=== PATIENT | male | born 1990 | race Caucasian/White ===

== ENCOUNTER 2020-12-09 21:15 | Emergency (ER) | payer SELFPAY ==
[2020-12-09 21:29] VITALS: BP 164/100; PULSE 92; RESP 18; TEMP 37.1; O2SAT 98; BMI 35.2
--- NOTE | 2020-12-09 21:32 | W.ED.SKABFB ---
HPI - Skin/Abscess/Foreign Bdy General: Chief complaint: Extremity Injury, Lower Stated complaint: Spider Bite Time Seen by Provider: 12/09/20 21:32 History of Present Illness: HPI narrative: 29-year-old male patient comes in today with a area of redness and tenderness to the left knee. Patient reports noticing it about 3 days ago he has continued to get more red and larger. Patient works in [email or web address]. Patient does not know what it happened to cause of wound he thought he might have been bit by a spider. Review of Systems General: Reports: 10 or more systems reviewed and unremarkable except in HPI and below Skin/Breast: Reports: other (Redness and tenderness to the left knee.) Physical Exam Const: COMMON NORMALS: no acute distress and patient oriented x3 GENERAL APPEARANCE: cooperative HENMT: COMMON NORMALS: normocephalic and Normal external nose present HEAD & SCALP: normal to inspection and normocephalic NOSE: Normal external nose present Eye: GENERAL EYE: appearance normal, both eyes and all related structures Neck/C-Spine: COMMON NORMALS: full ROM Chest: COMMONS NORMALS: normal inspection of the chest Resp: COMMON NORMALS: normal respiratory effort EFFORT & INSPECTION: Yes able to speak in complete sentences Cardio: COMMON NORMALS: regular rate and regular rhythm RATE: regular rate RHYTHM: regular rhythm GI: COMMON NORMALS: non-tender Extremity: COMMON NORMALS: normal to inspection Neuro: COMMON NORMALS: patient oriented x3 and moves all extremities Psych: COMMON NORMALS: mental status grossly normal and cooperative Skin: NARRATIVE SKIN EXAM: 4 cm area of redness with a punctate lesion draining serous fluid to the medial distal thigh or proximal knee area of the left leg. Patient has good range of motion. No fluctuance or sign of fluid collection is noted. Redness is indurated. Course Vital Signs: Vital signs: Vital Signs Temperature 98.7 F 12/09/20 21:29 Pulse Rate 92 12/09/20 21:29 Respiratory Rate 18 12/09/20 21:29 Blood Pressure 164/100 12/09/20 21:29 Pulse Oximetry 98 12/09/20 21:29 MDM - Skin/Abscess/Foreign Bdy MDM Narrative: Medical decision making narrative: Patient comes in today for complaints of redness and tenderness to the proximal left knee. There is a 4 cm area of redness of punctate clear drainage wound. Palpation of the wound notes no fluctuance or fluid collection. No sign of fluid collections or joint tenderness is noted with movement. Differential diagnosis includes cellulitis, infected wound, abscess. No sign of abscess is noted at this time. Will treat with antibiotic and warm compresses. Patient was recommended to monitor and follow-up with primary care in 3 days or return to the ER for worsening symptoms. Patient reported understanding. Discharge Plan Discharge Patient Disposition: Home Clinical Impression: Infected wound Condition: Stable Prescriptions: New Bactrim DS 800-160 mg tablet 1 tab PO BID 7 Days Qty: 14 RF: 0 mupirocin 2 % ointment 1 applic topical BID Qty: 22 RF: 0 Discharge Orders: Discharge ED (Routine); Ordered 12/09/20 Ordered By: Sagar Gomez Discharge Diet: Usual diet Discharge Activity: Increase activity as tolerated Patient Instructions: Wound Infection (ED), Opioid Safety Activity Restrictions/Additional Instructions: Warm moist packs to the area of redness. Take antibiotic twice a day as directed. Use antibiotic ointment to the wound twice a day until healed. Keep wound clean and dry as much as possible. Monitor site for increasing swelling and redness. At this time there is no indication of need for drainage but this may develop over time. Return to the ER or follow-up with primary care if you feel the wound needs to be drained. Do not stick a needle or try to drain the wound by yourself. Do not press and prod on the wound. You can do warm water soaks and hot compresses to the wound. Drink plenty of water with medication. Use Tylenol or ibuprofen for pain. Follow-up with primary care as needed. Coding Level of Care Code ED Waste Reduction Coordinator for Maia Rodriguez
[2020-12-09 21:35] VITALS: BP 149/88; PULSE 81; RESP 18; TEMP 36.9; O2SAT 96
[2020-12-09 22:26] VITALS: PULSE 86; RESP 18; O2SAT 97
== END 2020-12-09 22:27 | disposition home or self-care (01) ==
PROVIDERS: Emergency Provider Nurse Practitioner Family
DX: S80.912A Unspecified superficial injury of left knee, initial encounter (principal); L08.9 Local infection of the skin and subcutaneous tissue, unspecified; X58.XXXA Exposure to other specified factors, initial encounter
CPT/HCPCS: 99282

== ENCOUNTER → 2020-12-12 15:58 | Outpatient (BNVA) | payer SELFPAY | PROVIDERS: PCP Nurse Practitioner Family; Visit Provider Nurse Practitioner Family | DX: L02.416 Cutaneous abscess of left lower limb (principal) | CPT/HCPCS: 73562; 87070; 87077; 87184 ==

== ENCOUNTER 2021-11-28 04:48 | Emergency (ER) | payer SELFPAY ==
[2021-11-28 04:51] VITALS: BP 116/75; PULSE 113; RESP 18; TEMP 37.8; O2SAT 95; BMI 34.1
--- NOTE | 2021-11-28 05:11 | XRR_ITS ---
PROCEDURE INFORMATION: Exam: XR Chest Exam date and time: 11/28/2021 5:19 AM Age: 30 years old Clinical indication: Fever and shortness of breath; Patient HX: Fever with SOB; Additional info: SOB, fever TECHNIQUE: Imaging protocol: Radiologic exam of the chest. Views: 1 view. COMPARISON: No relevant prior studies available. FINDINGS: Lungs: There are mildly decreased lung volumes with mild accentuation of the pulmonary vascularity. There are no confluent interstitial or airspace opacities. Pleural spaces: There are no pleural effusions or pneumothorax. Heart/Mediastinum: The heart size is normal. The mediastinal contour is normal. The trachea is in the midline. Bones/joints: No acute abnormalities. XR/XR chest 1V portable [id number] IMPRESSION: Mildly decreased lung volumes with mild accentuation of the pulmonary vascularity. No confluent infiltrates in the lungs.
[2021-11-28] MEDS: ondansetron 4 MG Tablet PO (05:20)
[2021-11-28] MEDS: acetaminophen 325 mg Tablet 650 MG PO (05:20)
[2021-11-28 05:35] LABS: Basophils % 0.6 %; Eosinophils % 0.4 %; Hemoglobin 15.5 g/dL (11.7-16.6); Lymphocytes # 0.7 10^3/uL (0.8-4.8); Lymphocytes % 14.8 %; Mean Corpuscular HGB Conc 35.2 g/dL (30.0-36.0); Mean Corpuscular Hemoglobin 30.8 pg (28.0-34.0); Mean Corpuscular Volume 87.3 fl (80-94); Mean Platelet Volume 9.6 fL (7.4-10.4); Monocytes # 0.4 10^3/uL (0.2-0.9); Monocytes % 7.6 %; Neutrophils # 3.59 10^3/uL (1.8-7.7); Nucleated Red Blood Cells % 0 %; Platelet Count 101 10^3/cmm (130-400); Red Blood Count 5.04 10^6/uL (4.1-5.3); Red Cell Distribution Width 11.9 % (12.1-15.1); White Blood Count 4.7 10^3/uL (4.0-10.0)
[2021-11-28 05:38] VITALS: O2SAT 95
[2021-11-28 05:52] LABS: SARS Covid-2 Antigen Negative (Negative)
[2021-11-28 05:58] LABS: Alanine Aminotransferase 60 U/L (0-41); Albumin Level 4.2 g/dL (3.5-5.2); Alkaline Phosphatase 63 U/L (40-130); Aspartate Amino Transferase 50 U/L (0-40); Blood Urea Nitrogen 15 mg/dL (6-20); Calcium 9.2 mg/dL (8.5-10.5); Carbon Dioxide 21 mmol/L (22-29); Chloride 98 mmol/L (98-107); Glomerular Filtration Rate 71.6 mL/min (90-130); Glucose 129 mg/dL (65-115); Osmolality Calculated 275 mOsm/kg (285-295); Sodium 131 mmol/L (136-145); Total Bilirubin 1.8 mg/dL (0.15-1.2); Total Protein 7.2 g/dL (6.6-8.7)
--- NOTE | 2021-11-28 05:59 | ED_ITS ---
HPI - COVID General: Chief Complaint: COVID symptoms Stated Complaint: Head aches\Body Aches\Cough\Conjestion\Fever Time Seen by Provider: 11/28/21 05:02 Triage information: Has fever, cough or shortness of breath . No known COVID + exposure last 14 days History of Present Illness: 30-year-old male presents with headache, body aches, cough, congestion, fever that started about 2 days ago. Patient has some mild shortness of breath. Patient has a lot of dry heaves and nausea but no vomiting. And no diarrhea. Patient has no known sick contacts. COVID 19 common symptoms: positive fever(s), chills, non-productive cough, dyspnea, fatigue, body aches, headache(s) and nausea; negative throat pain or diarrhea COVID 19 other sytmptoms: negative chest pain or dizziness COVID Results: SARS-CoV-2 Antigen (Rapid) Negative (Negative) 11/28/21 05:27 Review of Systems Const: Reports: fever(s), chills, body aches, fatigue and malaise Eyes: Denies: change in vision or blurry vision ENMT: Denies: throat pain or ear or mastoid pain Card: Denies: chest pain or palpitations Resp: Reports: dyspnea, non-productive cough, wheezing and chest congestion GI: Reports: abdominal pain, nausea and other (Dry heaves); Denies: diarrhea or constipation : Denies: flank pain or dysuria Musc: Denies: neck pain or back pain Skin/Breast: Denies: rash or pruritus Neuro: Reports: headache(s); Denies: dizziness PFSH ED PFSH: Medical History Abscess of left knee Social History (Updated 11/20/21 @ 16:44 by Saumya Tomlinson LPN) Smoking and tobacco status: never smoked Alcohol intake: never Adopted: No Caregiver/support person: No Lives independently: No Household members: spouse Marital status: service: No Current occupational status: employed Sexually active: Yes Current gender identity: Male Physical Exam Const: COMMON NORMALS: patient oriented x3 OTHER: Febrile HENMT: COMMON NORMALS: hearing grossly normal bilaterally and moist oral mucous membranes Resp: EFFORT & INSPECTION: Yes able to speak in complete sentences AUSCULTATION: wheezes throughout (Mild) Cardio: COMMON NORMALS: regular rate and regular rhythm RATE: regular rate RHYTHM: regular rhythm GI: COMMON NORMALS: Soft to palpation and non-tender PALPATION: Yes Soft to palpation Extremity: COMMON NORMALS: full ROM and capillary refill normal Neuro: COMMON NORMALS: patient oriented x3, moves all extremities and no focal motor deficits Psych: COMMON NORMALS: mental status grossly normal, Normal thought process present, cooperative and normal affect THOUGHT PROCESS: Normal thought process present Skin: COMMON NORMALS: no rashes or lesions noted and no wounds GENERAL SKIN EXAM: no rashes or lesions noted Course Vital Signs: Vital signs: Vital Signs Temperature 100.1 F H 11/28/21 04:51 Pulse Rate 91 11/28/21 06:06 Respiratory Rate 18 11/28/21 06:06 Blood Pressure 123/78 11/28/21 06:06 Pulse Oximetry 93 11/28/21 06:06 Oxygen Delivery Me thod 11/28/21 05:38 MDM - COVID Medical Decision Making Patient negative for COVID. Patient exam and x-rays consistent for bronchitis with possible early pneumonia. I will go ahead and start him on azithromycin along with prescribing some Zofran and an inhaler. He should follow-up with a primary care provider as needed return to the ER with any increasing shortness of breath or any other concerns. Patient was stable and discharged home Lab Data : 11/28/21 05:27 11/28/21 05:27 Laboratory Results WBC 4.7 10^3/uL (4.0-10.0) 11/28/21 05:27 RBC 5.04 10^6/uL (4.1-5.3) 11/28/21 05:27 Hgb 15.5 g/dL (11.7-16.6) 11/28/21 05:27 Hct 44.0 % (42.0-52.0) 11/28/21 05:27 MCV 87.3 fl (80-94) 11/28/21 05:27 MCH 30.8 pg (28.0-34.0) 11/28/21 05:27 MCHC 35.2 g/dL (30.0-36.0) 11/28/21 05:27 RDW 11.9 % (12.1-15.1) L 11/28/21 05:27 Plt Count 101 10^3/cmm (130-400) L 11/28/21 05:27 MPV 9.6 fL (7.4-10.4) 11/28/21 05:27 Neut % (Auto) 76.0 % 11/28/21 05:27 Lymph % (Auto) 14.8 % 11/28/21 05:27 [place] % (Auto) 7.6 % 11/28/21 05:27 Eos % (Auto) 0.4 % 11/28/21 05:27 Baso % (Auto) 0.6 % 11/28/21 05:27 Neut # (Auto) 3.59 10^3/uL (1.8-7.7) 11/28/21 05:27 Lymph # (Auto) 0.7 10^3/uL (0.8-4.8) L 11/28/21 05:27 [place] # (Auto) 0.4 10^3/uL (0.2-0.9) 11/28/21 05:27 Eos # (Auto) 0.0 10^3/uL (0.0-0.8) 11/28/21 05:27 Baso # (Auto) 0.0 10^3/uL (0.0-0.1) 11/28/21 05:27 Nucleated RBC % (auto) 0 % 11/28/21 05:27 Nucleated RBCs # 0.0 /100WBC 11/28/21 05:27 Chloride 98 mmol/L (98-107) 11/28/21 05:27 BUN 15 mg/dL (6-20) 11/28/21 05:27 Creatinine 1.2 mg/dL (0.7-1.2) 11/28/21 05:27 Calcium 9.2 mg/dL (8.5-10.5) 11/28/21 05:27 Alkaline Phosphatase 63 U/L (40-130) 11/28/21 05:27 Total Protein 7.2 g/dL (6.6-8.7) 11/28/21 05:27 Albumin 4.2 g/dL (3.5-5.2) 11/28/21 05:27 Globulin 3.0 g/dL (1.3-4.6) 11/28/21 05:27 SARS-CoV-2 Ag (Rapid) Negative (Negative) 11/28/21 05:27 SARS-CoV-2 Antigen (Rapid) Negative (Negative) 11/28/21 05:27 Discharge Plan Discharge Patient Disposition: Home Clinical Impression: Bronchitis Condition: Stable Prescriptions: New azithromycin 250 mg tablet See Rx Instructions .ROUTE .COMPLEX Qty: 6 0RF Rx Instructions: For 250 mg dose pack: take 500 mg today (day 1), then 250 mg for 4 days (days 2-5) albuterol sulfate [Ventolin HFA] 90 mcg/actuation HFA aerosol inhaler 2 inh inhalation Q6H PRN (Reason: shortness of breath or wheezing) Qty: 8.5 0RF ondansetron 4 mg tablet,disintegrating 4 mg PO Q6H PRN (Reason: nausea and vomiting) Qty: 20 0RF No Action lisinopril 5 mg tablet 5 mg PO DAILY Qty: 30 0RF sulfamethoxazole-trimethoprim [Bactrim DS] 800-160 mg tablet 1 tab PO BID 10 Days Qty: 20 0RF Discharge Orders: Discharge ED (Routine); Ordered 11/28/21 Ordered By: Adam Thomas Referrals: ADRIANA Cheng, SENIOR ERP CONSULTANT [Primary Care Provider] - Discharge Diet: Advance as tolerated Discharge Activity: Increase activity as tolerated Patient Instructions: Opioid Safety, Pain Management, Acute Bronchitis (ED) Activity Restrictions/Additional Instructions: Drink plenty of fluids Follow-up with your primary care provider in a couple days, return to the ER if symptoms worsening, increasing shortness of breath or any other concerns Coding Level of Care Code ED Ambulance Driver Paramedic for Maia Fwd Exam Comprehensive
[2021-11-28 06:06] VITALS: BP 123/78; PULSE 91; RESP 18; O2SAT 93
[2021-11-28 06:12] LABS: Anion Gap 16.3 (5-19)
[2021-11-28 06:13] LABS: Potassium 4.3 mmol/L (3.5-5.1)
[2021-11-28 06:17] VITALS: BP 122/43; PULSE 99; RESP 18; O2SAT 94
== END 2021-11-28 06:18 | disposition home or self-care (01) ==
PROVIDERS: Emergency Provider Student in an Organized Health Care Education/Training Program; PCP Nurse Practitioner Family
DX: J40 Bronchitis, not specified as acute or chronic (principal); Z20.822 Contact with and (suspected) exposure to COVID-19
CPT/HCPCS: 71045; 80053; 85025; 87426; 99284; Q0162